=== PATIENT | male | born 1970 ===

== ENCOUNTER 2018-05-03 11:41 | Emergency (ER) | payer OTHER ==
[~2018-05-03] VITALS: Ht 175.3 cm; Wt 72.6 kg
== END 2018-05-03 16:20 | disposition home or self-care (01) ==
LOC: ER 11:41
DX: S91.311A Laceration without foreign body, right foot, initial encounter (principal); Y24.8XXA Other firearm discharge, undetermined intent, initial encounter; Y93.89 Activity, other specified; Y92.89 Other specified places as the place of occurrence of the external cause; Y99.8 Other external cause status